=== PATIENT | female | born 1935 | race Caucasian/White ===

== ENCOUNTER 2017-04-11 13:35 | Emergency (ER) | payer OTHER, BC ==
[~2017-04-11] VITALS: Ht 167.6 cm; Wt 72.6 kg
[2017-04-11] MEDS ORDERED: TOPROL XL50 MG PO (13:49)
[2017-04-11] MEDS ORDERED: GLUCOPHAGE XR750 MG PO (13:49)
[2017-04-11] MEDS ORDERED: NEXIUM40 MG PO (13:49)
[2017-04-11] MEDS ORDERED: HYDROCHLOROTHIA25 M2 PO (13:49)
[2017-04-11] MEDS ORDERED: ASPIR 8181 MG PO (13:50)
[2017-04-11] MEDS ORDERED: DIOVAN320 MG PO (13:50)
[2017-04-11] MEDS ORDERED: ROSUVASTATIN CA40 MG PO (13:50)
[2017-04-11] MEDS ORDERED: PREDNISONE 10 M10 M1 PO (15:07)
[2017-04-11 15:22] VITALS: BP 145/79
== END 2017-04-11 15:24 | disposition home or self-care (01) ==
LOC: ER 13:35
DX: T63.441A Toxic effect of venom of bees, accidental (unintentional), initial encounter (principal); I10 Essential (primary) hypertension; F10.99 Alcohol use, unspecified with unspecified alcohol-induced disorder; Z98.890 Other specified postprocedural states; Z85.3 Personal history of malignant neoplasm of breast; Y92.89 Other specified places as the place of occurrence of the external cause

== ENCOUNTER 2019-11-03 17:34 | Emergency (ER) | payer OTHER, BC ==
[~2019-11-03] VITALS: Ht 167.6 cm; Wt 65.8 kg
[~2019-11-03 17:34] MED LIST: ASPIR 8181 MG PO; DIOVAN320 MG PO; GLUCOPHAGE XR750 MG PO; HYDROCHLOROTHIA25 M2 PO; NEXIUM40 MG PO; PREDNISONE 10 M10 M1 PO; ROSUVASTATIN CA40 MG PO; TOPROL XL50 MG PO
[2019-11-03] MEDS ORDERED: LISINOPRIL5 MG PO (18:00)
[2019-11-03] MEDS ORDERED: NORVASC 2.5 MG2.5 M1 PO (18:00)
[2019-11-03] MEDS ORDERED: PANTOPRAZOLE SO40 M1 PO (18:01)
[2019-11-03 19:44] VITALS: BP 168/68
== END 2019-11-03 19:45 | disposition home or self-care (01) ==
LOC: ER 17:34
DX: L23.89 Allergic contact dermatitis due to other agents (principal); I10 Essential (primary) hypertension; E11.9 Type 2 diabetes mellitus without complications; Z98.890 Other specified postprocedural states

== ENCOUNTER 2020-05-04 08:00 | Inpatient (IN) | payer OTHER, BC ==
[~2020-05-04] VITALS: Ht 167.6 cm; Wt 64.4 kg
[~2020-05-04 08:00] MED LIST changes: +LISINOPRIL5 MG PO; +NORVASC 2.5 MG2.5 M1 PO; +PANTOPRAZOLE SO40 M1 PO
[2020-05-04 08:04] VITALS: BP 134/54
[2020-05-04 09:10] LABS: URINE BILIRUBIN NEGATIVE (Negative); URINE BLOOD NEGATIVE (Negative); URINE CLARITY CLEAR; URINE COLOR YELLOW; URINE GLUCOSE-RANDOM* NEGATIVE (Negative); URINE KETONES NEGATIVE (Negative); URINE NITRITE-REFLEX NEGATIVE (Negative); URINE PROTEIN (DIPSTICK) NEGATIVE (Negative); URINE UROBILINOGEN 0.2 E.U./dl (0.2-1.0)
[2020-05-04 09:12] LABS: URINE LEUKOCYTES-REFLEX 1+ (Negative)
[2020-05-04 09:21] LABS: BACTERIA-REFLEX 1-9 Few /HPF (None Seen); CASTS None Seen /LPF (None Seen); CRYSTALS None Seen /LPF (None Seen); SQUAMOUS 0-3 Few /LPF (0-3); URINE RBC None Seen /HPF (0-2); URINE WBC-REFLEX 6-15 Few /HPF (0-5)
[2020-05-04 09:33] LABS: ANION GAP 8 mmol/L (7-16); BUN 21 mg/dL (7-18); CALCIUM 9.2 mg/dL (8.5-10.1); CHLORIDE 102 mmol/L (98-107); CO2 28 mmol/L (21-32); CREATININE 1.1 mg/dL (0.6-1.0); GLUCOSE 132 mg/dL (74-106); POTASSIUM 4.1 mmol/L (3.5-5.1); SODIUM 138 mmol/L (136-145)
[2020-05-04 09:39] LABS: AMP/METHAMP Negative (Negative); BARBITURATES Negative (Negative); BENZODIAZEPINES Negative (Negative); COCAINE Negative (Negative); METHADONE Negative (Negative); OPIATES Negative (Negative); PCP Negative (Negative)
[2020-05-04 09:43] LABS: ALBUMIN 3.5 g/dL (3.4-5.0); MAGNESIUM 2.1 mg/dL (1.8-2.4); SGOT 23 U/L (15-37); SGPT 19 U/L (30-65); TOTAL BILIRUBIN 0.4 mg/dL (0.2-1.0); TOTAL PROTEIN 6.9 g/dL (6.4-8.2); TROPONIN-I <0.06 ng/mL (<0.06)
[2020-05-04 09:55] LABS: ABSOLUTE NEUTROPHILS 6.6 thou/uL (1.4-8.2); BASOPHILS 1.1 % (0.0-2.0); EOSINOPHILS 1.5 % (0.0-3.0); HEMATOCRIT 34.5 % (37.0-47.0); HEMOGLOBIN 11.8 gm/dL (12.0-15.0); LYMPHOCYTES 12.6 % (24.0-44.0); MCH 30.8 pg (26.0-34.0); MCHC 34.1 g/dL (28.0-37.0); MCV 90.5 fL (80.0-100.0); MONOCYTES 6.2 % (1.0-8.0); PLATELET COUNT 281 thou/uL (150-400); POLYS 78.6 % (36.0-66.0); RBC 3.82 mil/uL (4.20-5.00); RDW 14.4 % (10.5-14.5); WBC 8.4 thou/uL (4.0-11.0)
[2020-05-04 15:46] VITALS: BP 158/68
--- NOTE | 2020-05-04 15:53 | EKG ---
[facility] [place] [address] ELECTROCARDIOGRAM REPORT Name: KEY GABRIEL Room #: 170-7 ADM IN M.R.#: [id number] Admission: 05/04/20 Attend Phys: Naveen Carter MD Discharge: Date of : 35 Report #: [id number] THIS REPORT FOR: cc: FAM - Family physician unknown FAM - Family physician unknown Raheem Sandoval MD [facility] THIS REPORT FOR: //name// [facility] ED Test Date: 2020-05-04 Test Time: 08:22:27 Pat Name: KEY GABRIEL Department: Room: 170 Gender: F Senior Graphic Designer: [facility] : 1935 Requested By: Faustino Vizcaino Order Number: [id number] MD: Raheem Sandoval Measurements Intervals [place] Rate: 55 P: 47 WY: 208 QRS: -4 QRSD: 97 T: 47 QT: 435 QTc: 416 Interpretive Statements Sinus rhythm Anteroseptal infarct, age indeterminate Compared to ECG 10/22/2004 07:50:29 Septal Q waves are now present Premature ventricular complexes are no longer present Electronically Signed On 05-04-2020 15:53:00 CDT by Raehem Sandoval [email or web address] <ELECTRONICALLY SIGNED> By: Raheem Sandoval MD, [facility] 05/04/20 1553 1 1 Raheem Sandoval MD, [facility] /EPI
[2020-05-04 16:31] VITALS: BP 104/44
[2020-05-04 20:15] VITALS: BP 146/66
--- NOTE | 2020-05-04 20:15 | NUR ---
Arrived on the floor with daughter. alert and oriented *4, calm, cooperative and pleasant. vomitted once, emesis was soft with yellow color, zofran given and worked. MRI Screen was completed with the help of the dabeccaer, faxed, would have MRI tomorrow morning.
--- NOTE | 2020-05-05 02:47 | NUR ---
ASSUMED PT CARE AROUND 1930. AXOX3, PLEASANT. VSS. NO S/S ACUTE DISTRESS NOTED OR REPORTED AT THIS IMTE. WILL CONT TO MONITOR FOR ANY CHANGES IN CONDITION.
[2020-05-05 03:24] LABS: ABSOLUTE NEUTROPHILS 4.5 thou/uL (1.4-8.2); BASOPHILS 0.6 % (0.0-2.0); EOSINOPHILS 3.5 % (0.0-3.0); HEMATOCRIT 35.1 % (37.0-47.0); HEMOGLOBIN 11.7 gm/dL (12.0-15.0); LYMPHOCYTES 24.8 % (24.0-44.0); MCH 30.3 pg (26.0-34.0); MCHC 33.2 g/dL (28.0-37.0); MCV 91.4 fL (80.0-100.0); PLATELET COUNT 293 thou/uL (150-400); POLYS 62.1 % (36.0-66.0); RBC 3.84 mil/uL (4.20-5.00); RDW 14.3 % (10.5-14.5); WBC 7.3 thou/uL (4.0-11.0)
[2020-05-05 03:30] LABS: CALCIUM 8.4 mg/dL (8.5-10.1); CREATININE 0.9 mg/dL (0.6-1.0); MAGNESIUM 1.8 mg/dL (1.8-2.4); POTASSIUM 3.4 mmol/L (3.5-5.1)
[2020-05-05 04:29] VITALS: BP 139/64
[2020-05-05 08:42] VITALS: BP 146/66
--- NOTE | 2020-05-05 11:53 | NUR ---
Received awake on bed. Due medications given as prescribed, able to swallow meds w/o difficulty. On room air. Vital signs stable. On heart healthy diet- tolerating well; no nausea, no vomiting and no abdominal pain noted. On blood sugar monitoring- taken and recorded; with sliding scale insulin ordere. On telemetry; strips attached to chart; no chest pain, crushing sensation or heaviness noted. Continent of bowel and bladder- able to go to the toilet with minimum asssit and gait belt. With NS at 125cc/hr, infusing well at R AC- dressing intact and flushing well. For MRI of head today, checklist accomplished by previous shift; went down via wheelchair, tolerated procedure well; transferred back to bed safely. Assisted in ADLs. Falls bundle in place. Visited by her daughter today, update given. Pt seen and examined by Dr Carter, a/w MRI results- for possible discharge today- pt and daughter updated. To continue monitoring patient.
[2020-05-05 14:12] VITALS: BP 146/66
[2020-05-05 14:37] VITALS: BP 132/75
== END 2020-05-05 14:50 | disposition home or self-care (01) | DRG 684 ==
LOC: ER 08:00 → EROBS 14:28 → 4W 14:28
PROVIDERS: Emergency Medicine; Nurse Practitioner; ADMIT Hospitalist; ATTEND Hospitalist
DX: N17.9 Acute kidney failure, unspecified (principal); F03.90 Unspecified dementia, unspecified severity, without behavioral disturbance, psychotic disturbance, mood disturbance, and anxiety; E86.0 Dehydration; N18.9 Chronic kidney disease, unspecified; E86.9 Volume depletion, unspecified; E11.22 Type 2 diabetes mellitus with diabetic chronic kidney disease; I12.9 Hypertensive chronic kidney disease with stage 1 through stage 4 chronic kidney disease, or unspecified chronic kidney disease; Z85.3 Personal history of malignant neoplasm of breast; Z87.81 Personal history of (healed) traumatic fracture; Z87.891 Personal history of nicotine dependence; Z90.10 Acquired absence of unspecified breast and nipple; H81.10 Benign paroxysmal vertigo, unspecified ear
CPT/HCPCS: 10045